=== PATIENT | female | born 1995 | race African-American/Black ===

== ENCOUNTER 2016-10-17 00:10 | Emergency (ER) | payer OTHER ==
[2016-10-17] MEDS ORDERED: NS 0.9% 1000 ML* 2,000 ML IV ONE (00:41)
[2016-10-17] MEDS ORDERED: Al Hydrox/Mg Hydrox/Simet LIQ* 30 ML UDC PO ONE (00:41)
[2016-10-17] MEDS ORDERED: Ondansetron INJ* 2 MG/ML VIAL IV ONE ×2 (00:44→01:31)
--- NOTE | 2016-10-17 00:49 | ED ---
Abdominal Pain/Female - HPI Summary HPI Summary: Patient arrives to ED with CC of abdominal pain, N/V/D after eating something "new" and feels it is food poisoning. Symptoms have been present for several hours and she is unable to drink fluids so is concerned over dehydration. Vomiting 3X and diarrhea 1X since this AM. She has had food poisoning before and states this feels the same. Denies SOB, chest pain, urinary symptoms. Patient is otherwise healthy and takes no medications. - History of Current Complaint Chief Complaint: EDNauseaVomitDiarrh Stated Complaint: VOMITING/DIARRHEA Time Seen by Provider: 10/17/16 00:30 Hx Obtained From: Patient ?: No Onset/Duration: Sudden Onset Timing: Constant Severity Initially: Moderate Severity Currently: Moderate Pain Intensity: 5 Pain Scale Used: 0-10 Numeric Location: Diffuse Radiates: No Character: Cramping Aggravating Factor(s): Nothing Alleviating Factor(s): Vomiting, Bowel Movement Associated Signs and Symptoms: Positive: Diaphoresis, Nausea, Vomiting, Diarrhea - Risk Factors Ectopic Risk Factor: Maternal Age ^ 30 Ovarian Torsion Risk Factor: Negative Allergies/Adverse Reactions: Allergies Allergy/AdvReac Type Severity Reaction Status Date / Time No Known Allergies Allergy Verified 03/27/16 00:10 PMH/Surg Hx/FS Hx/Imm Hx Previously Healthy: Yes Respiratory History: Reports: Hx Asthma, Hx Pneumonia Infectious Disease History: No Infectious Disease History: Denies: Traveled Outside the [place] in Last 30 Days - Family History Known Family History: Positive: Hypertension, Diabetes - Social History Occupation: Unemployed Lives: With Family Alcohol Use: None Hx Substance Use: No Substance Use Type: Reports: None Hx Tobacco Use: No Smoking Status (MU): Never Smoked Tobacco Review of Systems Constitutional: Negative Eyes: Negative Cardiovascular: Negative Respiratory: Negative Positive: Abdominal Pain, Vomiting, Diarrhea, Nausea Positive: no symptoms reported, see HPI Musculoskeletal: Negative Skin: Negative Neurological: Negative Psychological: Normal All Other Systems Reviewed And Are Negative: Yes Physical Exam Triage Information Reviewed: Yes Vital Signs On Initial Exam: Initial Vitals Temp Pulse Resp BP Pulse Ox 99.9 F 109 18 116/72 97 10/17/16 00:14 10/17/16 00:14 10/17/16 00:14 10/17/16 00:14 10/17/16 00:14 Vital Signs Reviewed: Yes Appearance: Positive: Well-Appearing, Well-Nourished Skin: Positive: Warm, Skin Color Reflects Adequate Perfusion Head/Face: Positive: Normal Head/Face Inspection Eyes: Positive: EOMI, LIBRA ENT: Positive: Normal ENT inspection, Pharynx normal Neck: Positive: Supple, No Lymphadenopathy Respiratory/Lung Sounds: Positive: Clear to Auscultation, Breath Sounds Present Cardiovascular: Positive: Normal, RRR Abdomen Description: Positive: Nontender, No Organomegaly, Soft, Other: - nontender in all 4 quadrants Bowel Sounds: Positive: Present Musculoskeletal: Positive: Normal, Strength/ROM Intact Neurological: Positive: Normal, Alert, Oriented to Person Place, Time Psychiatric: Positive: Normal - [place] Coma Scale Coma Scale Total: 15 Diagnostics - Vital Signs Vital Signs Temp Pulse Resp BP Pulse Ox 10/17/16 00:14 99.9 F 109 18 116/72 97 - Laboratory Result Diagrams: 10/17/16 00:45 10/17/16 00:45 Lab Statement: Any lab studies that have been ordered have been reviewed, and results considered in the medical decision making process. Abdominal Pain Fem Course/Dx - Course Course Of Treatment: Repleted with fluids 2000ml/hr one time. Zofran given for nausea. Maalox given for esophageal discomfort related to vomiting. Patient feeling better after fluids. Labs WNL. Flu negative. Will discharge home with zofran. Patient agreeable to plan. - Diagnoses Differential Diagnosis: Positive: Ovarian Cyst, Urinary Tract Infection, Other - food poisoning, viral illness, bacterial illness, gastroenteritis Provider Diagnoses: Nausea vomiting and diarrhea Discharge - Discharge Plan Condition: Stable Disposition: HOME Prescriptions: Ondansetron TAB* [Zofran 4 MG Tab*] 4 mg PO Q6H PRN #10 tab MDD 4 PRN Reason: Nausea Patient Education Materials: Acute Nausea and Vomiting (ED), Food Poisoning (ED ) Referrals: Lore De Leon DO [Primary Care Provider] - Additional Instructions: Drink plenty of fluids including water and gatorade. Tylenol 650mg three times daily as needed for pain Zofran as needed for nausea
[2016-10-17 01:21] LABS: Hematocrit 42 % (35-47); Hemoglobin 14.3 g/dl (12.0-16.0); Mean Corpuscular HGB Conc 34 g/dl (31-36); Mean Corpuscular Hemoglobin 31 pg (27-31); Mean Corpuscular Volume 93 fL (80-97); Mean Platelet Volume 9 um3 (7.4-10.4); Red Blood Count 4.57 10^6/ul (4.0-5.4); Red Cell Distribution Width 13 % (10.5-15)
[2016-10-17 01:32] LABS: Albumin 4.3 g/dL (3.2-5.2); BUN/Creatinine Ratio 20.6 (8-20); C Reactive Protein 6.67 mg/L (< 5.00); Calcium 9.1 mg/dL (8.6-10.3); EGFR African American 143.4 (>60); EGFR Non-African American 111.5 (>60); Globulin 3.4 g/dL (2-4); Potassium 3.8 mmol/L (3.5-5.0); Total Bilirubin 0.4 mg/dL (0.2-1.0); Total Protein 7.7 g/dL (6.4-8.9)
[2016-10-17] MEDS ORDERED: Ondansetron ODT TAB* 4 MG SL PRN (01:53)
[2016-10-17 04:04] VITALS: BP 102/52
== END 2016-10-17 04:04 | disposition home or self-care (01) ==
LOC: ED 00:10
DX: R10.9 Unspecified abdominal pain (principal); R11.2 Nausea with vomiting, unspecified; R19.7 Diarrhea, unspecified; R61 Generalized hyperhidrosis
CPT/HCPCS: 36415; 80053; 85025; 86140; 96374; 99283; A9270-GY; J2405

== ENCOUNTER 2018-09-12 22:13 | Emergency (ER) | payer OTHER ==
[2018-09-13] MEDS ORDERED: Acetaminophen TAB* 325 MG PO ONE (00:22)
[2018-09-13] MEDS ORDERED: Ibuprofen TAB* 800 MG PO ONE (00:23)
[2018-09-13] MEDS ORDERED: Albuterol/Ipratropium NEB.SOL* Albuterol 2.5 MG/Ipratropium 0.5 MG 3 ML INH ONE (00:23)
[2018-09-13] MEDS ORDERED: Albuterol 2.5 MG/3 ML NEB.SOL* (0.083%) INH ONE (00:23)
--- NOTE | 2018-09-13 00:25 | ED ---
Respiratory - HPI Summary HPI Summary: Pt is a 22 y/o F presenting to the ED with a chief respiratory complaint. Yesterday she woke up with a cough that lasted all day and into today. She went to the health center, the PA noted wheezing and prescribed cough suppressants, diagnosing it as viral. Today, she was very weak, has abd soreness, and chest tightness. Pt reports hx asthma. - History of Current Complaint Chief Complaint: EDGeneral Stated Complaint: FEVER/COUGH Time Seen by Provider: 09/13/18 00:15 Hx Obtained From: Patient Onset/Duration: Sudden Onset, Lasting Days, Still Present Timing: Constant Initial Severity: Mild Current Severity: Mild Pain Intensity: 3 Character: Wheezing, Cough (Nonproductive), Dyspnea on Exertion Sputum Amount: None Aggravating Factor(s): Exertion, Movement Alleviating Factor(s): Neb. Bronchodilators (Frequency Of Use) - given one at [facility] Associated Signs and Symptoms: Chest Pain - tightness, Wheezing - Allergy/Home Medications Allergies/Adverse Reactions: Allergies Allergy/AdvReac Type Severity Reaction Status Date / Time No Known Allergies Allergy Verified 10/17/16 04:06 Home Medications: Home Medications NK [No Home Medications Reported] 09/13/18 [History Confirmed 09/13/18] PMH/Surg Hx/FS Hx/Imm Hx Previously Healthy: No Endocrine/Hematology History: Denies: Hx Diabetes Respiratory History: Reports: Hx Asthma, Hx Pneumonia Infectious Disease History: No Infectious Disease History: Denies: Traveled Outside the [place] in Last 30 Days - Family History Known Family History: Positive: Hypertension, Diabetes - Social History Alcohol Use: None Hx Substance Use: No Substance Use Type: Reports: None Hx Tobacco Use: No Smoking Status (MU): Never Smoked Tobacco Review of Systems Negative: Fever Positive: Chest Pain Positive: Shortness Of Breath, Cough Positive: Abdominal Pain All Other Systems Reviewed And Are Negative: Yes Physical Exam - Summary Physical Exam Summary: VITAL SIGNS: Reviewed. GENERAL: Patient is a well-developed and nourished female who is lying comfortable in the stretcher. Patient is not in any acute respiratory distress. HEAD AND FACE: No signs of trauma. No ecchymosis, hematomas or skull depressions. No sinus tenderness. EYES: PERRLA, EOMI x 2, No injected conjunctiva, no nystagmus. EARS: Hearing grossly intact. Ear canals and tympanic membranes are within normal limits. MOUTH: Oropharynx within normal limits. NECK: Supple, trachea is midline, no adenopathy, no JVD, no carotid bruit, no c- spine tenderness, neck with full ROM. CHEST: Symmetric, no tenderness at palpation LUNGS: Clear to auscultation bilaterally. No wheezing or crackles. CVS: Tachycardic, S1 and S2 present, no murmurs or gallops appreciated. ABDOMEN: Soft, non-tender. No signs of distention. No rebound no guarding, and no masses palpated. Bowel sounds are normal. EXTREMITIES: FROM in all major joints, no edema, no cyanosis or clubbing. NEURO: Alert and oriented x 3. No acute neurological deficits. Speech is normal and follows commands. SKIN: Dry and warm Triage Information Reviewed: Yes Vital Signs On Initial Exam: Initial Vitals Temp Pulse Resp BP Pulse Ox 99.4 F 122 18 139/83 97 09/12/18 22:21 09/12/18 22:21 09/12/18 22:21 09/12/18 22:21 09/12/18 22:21 Vital Signs Reviewed: Yes Diagnostics - Vital Signs Vital Signs Temp Pulse Resp BP Pulse Ox 09/12/18 22:21 99.4 F 122 18 139/83 97 - Laboratory Lab Statement: Any lab studies that have been ordered have been reviewed, and results considered in the medical decision making process. - Radiology Chest x-ray Radiology Interpretation Completed By: ED Physician Summary of Radiographic Findings: No acute process. Pending official radiology report. Disposition - Course Course Of Treatment: Pt is a 22 y/o F presenting to the ED with a chief respiratory complaint. Yesterday she woke up with a cough that lasted all day. Today, she was very weak, has abd soreness, and chest tightness. Pt reports hx asthma. Chest x-ray reveals no acute process. Rapid influenza A test was positive. Pt will be discharged home with a dx of influenza A and asthma, as well as instructions to stay home from class for 3 days. - Diagnoses Provider Diagnoses: Influenza A, Asthma Discharge - Sign-Out/Discharge Documenting (check all that apply): Patient Departure Patient Received Moderate/Deep Sedation with Procedure: No - Discharge Plan Condition: Stable Disposition: HOME Prescriptions: Ibuprofen TAB* [Motrin TAB* 800 MG] 800 mg PO Q6H PRN #30 tab PRN Reason: Fever/Pain Oseltamivir CAP* [Tamiflu CAP*] 75 mg PO BID #10 cap predniSONE TAB* [Deltasone TAB*] 50 mg PO DAILY #5 tab Forms: *School Release Referrals: Lore De Leon DO [Primary Care Provider] - Additional Instructions: PLEASE TAKE YOUR PRESCRIBED MEDICATIONS INSTRUCTED. FOLLOW UP WITH YOUR PCP IN THE NEXT 1-2 DAYS. RETURN TO THE EMERGENCY DEPARTMENT WITH ANY NEW OR WORSENING SYMPTOMS. - Attestation Statements Document Initiated by Beibe: Yes Documenting Scribe: Jovanna Wesley Provider For Whom Caprice is Documenting (Include Credential): Queenie Blake MD. Scribe Attestation: Jovanna Woodruff scribed for Queenie Blake MD. on 09/13/18 at 0111. Status of Scribe Document: Ready
[2018-09-13 01:05] LABS: Influenza A Molecular POSITIVE (Negative)
[2018-09-13] MEDS ORDERED: Oseltamivir CAP* 75 MG CAP PO ONE (01:09)
[2018-09-13 01:36] VITALS: BP 121/73
== END 2018-09-13 01:15 | disposition home or self-care (01) ==
LOC: ED 22:13
DX: J11.1 Influenza due to unidentified influenza virus with other respiratory manifestations (principal); J45.909 Unspecified asthma, uncomplicated; R07.9 Chest pain, unspecified; R06.00 Dyspnea, unspecified; R05 Cough; R10.9 Unspecified abdominal pain
CPT/HCPCS: 71045; 99283; A9270-GY